=== PATIENT | female | born 2000 | race Caucasian/White ===

== ENCOUNTER 2022-02-09 20:29 | Emergency (ER) | payer MEDICAID, SELFPAY ==
[2022-02-09 20:31] VITALS: BP 116/89; PULSE 88; RESP 14; TEMP 36.9; O2SAT 97; BMI 22.8
--- NOTE | 2022-02-09 20:39 | EDS_ITS ---
HPI History of Present Illness Chief Complaint: Bite Detail of Chief Complaint: With bat in room Informant: patient Onset/Context/Timing Onset: Days (2 days ago) Context: - (The bat was caught.) Timing: - (Unknown) Quality: Bat found in sleeping quarters Location: [facility] Current Severity: Not applicable Maximum Severity: Not applicable Worsened by: Nothing Relieved by: Nothing Associated Symptoms Associated Symptoms: No associated symptoms Narrative Narrative: Patient is a healthy 21-year-old with history of migraine headaches who presents because a bat was found in the room she was sleeping. Apparently there is a problem with bats on the [facility]. This bat was specifically in her room. She does not know if she was or was not bitten. She presently has no complaints. Prior similar symptoms: No Recent Illness/Hospitalization: No PFSH PFSH Surgical History no surgical history no surgical history Social History (Updated 02/09/22 @ 20:[address] Ramos Vieira MD) household members: other details: Lives with [facility] roommate Smoking Status: Never smoker substance use type: does not use ROS ROS ED Constitutional Constitutional ED: Denies chills, fever(s), subjective, sweats or weight loss Eyes Eyes: Denies blurry vision, change in vision or diplopia ENT ENT ED: Denies ear pain, rhinorrhea or sore throat Cardiovascular Cardiovascular: Denies chest pain, palpitations or racing heartbeat Respiratory/Chest Respiratory/Chest: Denies cough, dyspnea or dyspnea on exertion Gastrointestinal Gastrointestinal: Denies abdominal pain, diarrhea, nausea or vomiting Genitourinary Genitourinary ED: Denies dysuria or urinary frequency Musculoskeletal Musculoskeletal: Denies arthralgias, back pain, myalgias or neck pain Integumentary Denies Abrasions or rash Psychiatric Psychiatric: Reports anxiety Endocrine Endocrinology: Denies cold intolerance or heat intolerance Hematologic/Lymphatic Hematologic/Lymphatic: Reports systems reviewed and no addt'l complaints, except as documented EXAM Physical Exam Const Vital Signs: 02/09/22 20:31 02/09/22 20:36 Temperature 98.4 F Temperature Source Temporal Pulse Rate 88 Respiratory Rate 14 Respiratory Pattern Normal Blood Pressure 116/89 H Blood Pressure Mean 98 Pulse Ox 97 Oxygen Delivery Method Room Air Positive well nourished and well developed General Appearance ED: well developed and NAD; Negative for cyanotic, diaphoretic or pallor HEENT Reports moist mucous membranes HEENT Narrative: Head is atraumatic no cephalic. Ears normal. Nares patent. Mucosa moist. Eyes PERRL and EOMs intact bilaterally General Eye ED: Yes pale conjunctiva and scleral icterus Neck no lymphadenopathy, supple and no JVD Neck Narrative: Trachea is midline. Resp normal respiratory effort and clear to auscultation bilaterally Cardio regular rate, regular rhythm, S1 normal heart sound, S2 normal heart sound and no murmurs GI normal to inspection, nondistended, normoactive bowel sounds, non-tender, non- distended and no masses; Negative for hepatosplenomegaly Palpation: soft Back/Spine no CVA tenderness Extremity normal to inspection Neuro oriented x3, CN's II-XII intact bilaterally and no sensory deficits noted Sensorium / Orientation: alert Motor Exam: strength 5/5 throughout Skin no rashes or lesions noted, no wounds and skin turgor normal General Skin Exam: Negative for jaundice or pallor MDM MDM MDM Narrative Medical decision making narrative: Exposure to bat. Concern for bat bite. Patient was vaccinated. Discharge Plan Triage Chief Complaint: Bite ED Provider: Ramos Vieira Dx/Rx/DC Orders Clinical Impression: Exposure to bat without known bite Instructions: Understanding Rabies Primary Care Provider: Care Physician,No Primary Referrals: [facility] [Group of Physicians] - As Needed Disposition Disposition: Home, Self Care
[2022-02-09] MEDS: Rabies Vaccine,Human Diploid 2.5 UNITS Vial IM (20:52)
[2022-02-09] MEDS: Rabies Immune Globulin 150 UNITS/ML 1060 UNITS IM (20:57)
--- NOTE | 2022-02-09 21:06 | ED.RN ---
Human Rabies Immune Globulin was given over 4 sites d/t amount given. 1mL to right deltoid, 2 mL to left thigh, 2 mL given in right and left buttock.
== END 2022-02-09 21:14 | disposition home or self-care (01) ==
PROVIDERS: Emergency Provider Emergency Medicine; Visit Provider Emergency Medicine
DX: Z23 Encounter for immunization (principal)
CPT/HCPCS: 90375; 90675; 99281

== ENCOUNTER → 2022-02-12 | Outpatient (CLI) | payer MEDICAID, SELFPAY ==
[2022-02-12 11:09] VITALS: BP 102/78; PULSE 58; RESP 18; TEMP 36.3; O2SAT 99; BMI 23.4
[2022-02-12] MEDS: Rabies Vaccine,Human Diploid 2.5 UNITS Vial IM (12:04)
== END | disposition home or self-care (01) ==
PROVIDERS: Emergency Provider Emergency Medicine; Visit Provider Emergency Medicine
DX: Z23 Encounter for immunization (principal)
CPT/HCPCS: 36592; 90675; 96372

== ENCOUNTER 2022-02-16 17:00 | Outpatient (CLI) | payer MEDICAID, SELFPAY ==
[2022-02-16 17:01] VITALS: BP 103/65; PULSE 59; RESP 14; O2SAT 100
[2022-02-16 17:02] VITALS: TEMP 36.2; BMI 24.0
[2022-02-16] MEDS: Rabies Vaccine,Human Diploid 2.5 UNITS Vial IM (17:37)
== END 2022-02-16 18:07 | disposition home or self-care (01) ==
LOC: ED 18:08
PROVIDERS: Visit Provider Emergency Medicine
DX: Z23 Encounter for immunization (principal)
CPT/HCPCS: 90675

== ENCOUNTER 2022-02-23 12:30 | Outpatient (CLI) | payer MEDICAID, SELFPAY ==
[2022-02-23 12:31] VITALS: BP 100/71; PULSE 57; RESP 15; TEMP 36.6; O2SAT 98; BMI 23.4
== END 2022-02-23 14:28 | disposition home or self-care (01) ==
LOC: ED 14:29
PROVIDERS: Visit Provider Student in an Organized Health Care Education/Training Program
DX: Z23 Encounter for immunization (principal)
CPT/HCPCS: 90675; 96372

== ENCOUNTER → 2024-03-26 | Outpatient (CLI) | payer MEDICAID, SELFPAY ==
[2024-03-26 12:57] LABS: Absolute Lymphocyte Count 2.34 X10^3/uL (0.83-4.51); Absolute Neutrophil Count 3.9 X10^3/uL (2.0-7.7); Basophil# 0.06 X10^3/uL; Basophil% 0.9 % (0-1); Eosinophils% 1.4 % (0-5); Hematocrit 44.3 % (37-47); Hemoglobin 14.9 g/dL (12.0-15.0); Lymphocyte # 2.34 X10^3/ul (0.83-4.51); Lymphocyte % 33.5 % (19-41); Mean Corp Hgb Conc 33.6 g/dL (32-36); Mean Corpuscular Hgb 30.8 pg (27.0-32.0); Mean Corpuscular Volume 91.7 fL (81-99); Mean Platelet Vol. 9.9 fl (6.2-12.0); Monocyte# 0.57 X10^3/uL; Monocyte% 8.2 % (0-10); NRBC Flagged by Analyzer 0 % (0-5); Neutrophil # 3.89 X10^3/uL (2.7-7.7); Neutrophil % 55.7 % (47-70); Platelet Count 332 K/mm3 (150-450); RBC Distribution Width CV 12.3 % (11.6-14.6); RBC Distribution Width SD 41.1 fl (35.1-43.9); Red Blood Count 4.83 M/mm3 (4.2-5.4)
[2024-03-26 13:33] LABS: ALB/GLOB Ratio 1.1 RATIO (0.9-2.4); AST(SGOT) 14 U/L (15-37); Alanine Aminotransfer ALT/SGPT 12 U/L (13-56); Albumin, Serum 3.9 g/dL (3.2-5.0); Alkaline Phosphatase 59 U/L (45-117); Anion Gap 5 (5-15); BUN 11 mg/dL (7-18); BUN/Creat Ratio 11.2 RATIO (10-20); Calcium,Total 9.4 mg/dL (8.5-10.1); Chloride 106 mmol/L (98-107); Creatinine, Serum 0.98 mg/dL (0.55-1.02); EST Glomerular Filtration Rate 76 mL/min (>60); Est Glom Filt Rate - Afr Amer 92 mL/min (>60); Globulin 3.5 g/dL (2.2-4.2); Glucose 78 mg/dL (74-106); Potassium 3.8 mmol/L (3.5-5.1); Protein, Total 7.4 g/dL (6.4-8.2); Sodium Level 139 mmol/L (136-145); T4 Free Direct 1.06 ng/dL (0.76-1.46)
== END | disposition home or self-care (01) ==
PROVIDERS: Referring Provider Student in an Organized Health Care Education/Training Program; Visit Provider Student in an Organized Health Care Education/Training Program
DX: R53.83 Other fatigue (principal)
CPT/HCPCS: 36415; 80053; 84439; 84443; 85025